=== PATIENT | female | born 1970 | race Hispanic/Latino ===

== ENCOUNTER 2018-05-12 11:02 | Day surgery (SDC) | payer MEDICARE, OTHER ==
[2018-05-12] MEDS ORDERED: MORPHINE IV NR (12:21)
--- NOTE | 2018-05-12 12:23 | Anesthesia Consultation ---
Anesthesia Consult and Med Hx Date of service: 05/12/18 - Airway Anesthetic Teeth Evaluation: Good ROM Head & Neck: Adequate Mental/Hyoid Distance: Adequate Mallampati Class: Class II Intubation Access Assessment: Probably Good - Pulmonary Exam CTA: Yes (no wheezing) - Cardiac Exam Cardiac Exam: RRR - Pre-Operative Health Status ASA Pre-Surgery Classification: ASA3 Proposed Anesthetic Plan: General - Pulmonary Hx Smoking: Yes (1 PPD FOR OVER 30Y) Hx Asthma: Yes COPD: Yes (last used albuterol today.) Home Oxygen Therapy: No - Cardiovascular System Hx Hypertension: Yes (20 YEARS) Hx Heart Attack/AMI: No Hx Valvular Heart Disease: Yes (MVP; rare palpitations) - Central Nervous System CVA: No Hx Back Pain: Yes Hx Psychiatric Problems: Yes (bipolar d/o, anxiety) - Gastrointestinal Hx Gastroesophageal Reflux Disease: Yes (asymptomatic today) - Endocrine Hx Renal Disease: No Hx Liver Disease: No Hx Insulin Dependent Diabetes: No Hx Non-Insulin Dependent Diabetes: No Hx Thyroid Disease: No - Other Systems Hx Alcohol Use: No Hx Substance Use: No Hx Cancer: No Hx Obesity: No - Additional Comments Anesthesia Medical History Comments: PMH Crohn's disease on stelara and entocort , COPD, smoking, bipolar anxiety. Takes zofran and phenergan prn for nausea. Takes oxycodone 10mg q4h prn for pain.
--- NOTE | 2018-05-12 12:33 | Operative Report ---
Operative Report Operative Report: Duplicate, please see other operative note
--- NOTE | 2018-05-12 12:37 | Anesthesia Day of Surgery ---
Anesthesia Day of Surgery - Day of Surgery Patient Examined: Yes Patient H&P Reviewed: Yes Patient is NPO: Yes
[2018-05-12] MEDS ORDERED: LACTATED RINGERS 1,000 ML IV SCH ×2 (13:00)
[2018-05-12] MEDS ORDERED: VERSED IV NR ×2 (13:00→15:00)
[2018-05-12] MEDS ORDERED: DECADRON IV NR (13:00)
[2018-05-12] MEDS ORDERED: DECADRON ONE (14:40)
[2018-05-12] MEDS ORDERED: DIPRIVAN 10 MG/ML IV ONE (14:40)
[2018-05-12] MEDS ORDERED: XYLOCAINE MPF 2% ONE (14:40)
[2018-05-12] MEDS ORDERED: ZOFRAN ONE (14:41)
[2018-05-12] MEDS ORDERED: DILAUDID ONE (14:41)
--- NOTE | 2018-05-12 14:44 | Short Stay Summary ---
Short Stay Documentation Date of service: 05/12/18 - History H&P: obtained from office - Allergies and Medications Current Medications: Allergies mesalamine [From Pentasa] Allergy (Verified 05/07/18 12:34) BLACKOUT hydromorphone [From Dilaudid] Adverse Reaction (Verified 05/12/18 13:20) hallucinations, agitation sulfa topical cream Allergy (Uncoded 05/12/18 14:35) Rash Home Medications Medication Instructions Recorded Confirmed Last Taken Type ALBUTEROL Inhaler [ProAir HFA 2 inh INHALATION Q4H PRN 05/07/18 05/12/18 10:00 History Inhaler] 2 puffs ALPRAZolam [Xanax TAB] 1 mg PO PRN PRN 05/07/18 05/12/18 05/09/18 History Aspirin [Aspirin BABY CHEW TAB] 81 mg PO QDAY 05/07/18 05/12/18 05/10/18 History Benazepril (Nf) 10 mg PO DAILY 05/07/18 05/12/18 05/11/18 History Budesonide [Budesonide EC] 9 mg PO DAILY 05/07/18 05/12/18 05/11/18 History Cyclobenzaprine [Flexeril] 10 mg PO TID PRN 05/07/18 05/12/18 05/11/18 History Lurasidone HCl [Latuda] 120 mg PO DAILY 05/07/18 05/12/18 05/11/18 History Morphine Sulfate [Morphine Sulfate 15 mg PO PRN PRN 05/07/18 05/12/18 05/09/18 History ER] Multivitamin [Multiple Vitamins] 1 each PO DAILY 05/07/18 05/12/18 05/11/18 History OXcarbazepine [Oxtellar XR] 150 mg PO QDAY 05/07/18 05/12/18 05/11/18 History Ondansetron [Zofran ODT TAB] 8 mg PO PRN PRN 05/07/18 05/12/18 05/05/18 History Oxycodone HCl 10 mg PO PRN PRN 05/07/18 05/12/18 05/12/18 07:00 History Pantoprazole Sodium 40 mg PO QAM 05/07/18 05/12/18 05/11/18 History Promethazine [Phenergan TAB] 25 mg PO Q6HR PRN 05/07/18 05/12/18 05/01/18 History Ustekinumab [Stelara] 90 mg IM QMONTH 05/07/18 05/12/18 04/29/18 History Dicyclomine [Bentyl] 10 mg PO QDAY 05/12/18 05/12/18 05/11/18 History Loperamide [Imodium] 2 mg PO QDAY PRN 05/12/18 05/12/18 05/10/18 History Potassium Chloride [Klor-Con M20] 20 meq PO QDAY 05/12/18 05/12/18 03/10/18 History Simethicone [Gas-X] 62.5 mg PO QDAY PRN 05/12/18 05/12/18 05/09/18 History Spironolactone 50 mg PO QDAY 05/12/18 05/12/18 05/11/18 History amLODIPine [Norvasc] 5 mg PO DAILY 05/12/18 05/12/18 05/12/18 09:00 History Active Medications Dexamethasone (Decadron) 4 mg IV PREOP NR Stop: 05/12/18 23:51 Last Admin: 05/12/18 13:07 Dose: 4 mg Fentanyl (Sublimaze) 50 mcg IV Q10M PRN PRN Reason: Pain , Severe (7-10) Stop: 05/12/18 18:00 Lactated Ringer's (Lactated Ringers) 1,000 mls @ 100 mls/hr IV DIRECT BETH Last Admin: 05/12/18 13:06 Dose: 100 mls/hr Lactated Ringer's (Lactated Ringers) 1,000 mls @ 100 mls/hr IV DIRECT BETH Stop: 05/12/18 18:00 Midazolam HCl (Versed) 2 mg IV PREOP NR Stop: 05/12/18 23:59 Last Admin: 05/12/18 14:05 Dose: 2 mg Midazolam HCl (Versed) 2 mg IV PREOP NR Stop: 05/12/18 23:59 Morphine Sulfate (Morphine) 2 mg IV ONCE NR Stop: 05/12/18 23:59 Last Admin: 05/12/18 12:58 Dose: 2 mg - Brief post op/procedure progress note Date of procedure: 05/12/18 Pre-op diagnosis: 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 Post-op diagnosis: same Procedure: Left breast fibroadenoma excisional biopsy of the upper outer quadrant Anesthesia: GETA Findings: Left breast fibroadenoma at the 2:00 position Surgeon: MILADIS BIANCHI Estimated blood loss: minimal Pathology: list (left breast fibroadenoma) Specimen disposition: to lab Condition: stable - Disposition Condition at discharge: Good Disposition: DC-01 TO HOME OR SELFCARE Short Stay Discharge Plan Activity: other (no heavy lifting) Diet: regular Wound: other (keep incision clean and dry; may shower in 30 hours; no baths, pools or lakes; wear breast binder) Follow up with: ETHEL WALSH [Other] - 7 Days MILADIS BIANCHI MD [Staff Physician] - 7 Days
--- NOTE | 2018-05-12 14:49 | Operative Report ---
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 Findings: Known left breast fibroadenoma at the 2 o'clock position Complications: None Drains: None Estimated blood loss: Minimal Disposition: PACU in good condition Indication for operative procedure: This is a 48-year-old lady with known left breast fibroadenoma at the 2:00 position. Patient wanted to proceed with left fibroadenoma excisional biopsy given sympotomatic pain. Patient wished to proceed with the above procedure. The patient was procedure in detail: The patient was taken to the operating room and was laid supine. General anesthesia was administered. The left breast fibroadenoma was palpable at the 2 o'clock position 7 cm from the nipple. The left breast was prepped and draped in the normal sterile operative fashion. Timeout was performed. Ultrasound was used to brett the area of incision. An upper outer quadrant breast incision was made with a 15 blade knife 2:00 position with dissection taken down to the subcutaneous tissues. The fibroadenoma was encountered and was dissected free with the aid of the Bovie cautery. The specimen was sent to pathology. Hemostasis was then obtained using the Bovie cautery. The breast cavity was irrigated and suctioned. The breast cavity was anesthesized with 1% lidocaine with quarter percent marcaine. The deep breast tissues were approximated and closed using interrupted 3-0 Vicryl and skin brought together and closed using a running 4-0 Monocryl followed by skin affix. She tolerated surgery very well and was awakened from anesthesia without any complication and transported to PACU in good condition.
[2018-05-12] MEDS ORDERED: SUBLIMAZE ONE ×2 (15:01→15:17)
[2018-05-12] MEDS ORDERED: MARCAINE 0.25% INFILTRATI ONE (15:19)
[2018-05-12] MEDS ORDERED: XYLOCAINE 1% 20 mL INFILTRATI ONE (15:19)
[2018-05-12] MEDS ORDERED: NACL 0.9% IR ONE (15:19)
[2018-05-12] MEDS: SUBLIMAZE IV PRN ×2 (15:58→16:13)
--- NOTE | 2018-05-12 16:52 | Post Anesthesia Evaluation ---
- Post Anesthesia Evaluation Patient Participated: Yes Airway Patent: Yes Stable Respiratory Function: Yes Nausea/Vomiting: No Temp > 96.8F: Yes Pain Manageable: Yes Adequeate Hydration: Yes Anesthesia Complications: No
[2018-05-12 17:33] VITALS: BP 162/99
== END 2018-05-12 17:10 | disposition home or self-care (01) ==
LOC: OR 11:02
PROVIDERS: ATTEND Surgery
DX: D24.2 Benign neoplasm of left breast (principal); R92.0 Mammographic microcalcification found on diagnostic imaging of breast; G43.909 Migraine, unspecified, not intractable, without status migrainosus; M79.7 Fibromyalgia; F31.9 Bipolar disorder, unspecified; I10 Essential (primary) hypertension; J44.9 Chronic obstructive pulmonary disease, unspecified; K21.9 Gastro-esophageal reflux disease without esophagitis; M19.90 Unspecified osteoarthritis, unspecified site; K50.90 Crohn's disease, unspecified, without complications; F17.210 Nicotine dependence, cigarettes, uncomplicated; Z79.899 Other long term (current) drug therapy; Z88.6 Allergy status to analgesic agent; Z88.5 Allergy status to narcotic agent; Z88.2 Allergy status to sulfonamides; Z98.51 Tubal ligation status; Z90.710 Acquired absence of both cervix and uterus; Z90.49 Acquired absence of other specified parts of digestive tract; Z98.891 History of uterine scar from previous surgery; Z98.890 Other specified postprocedural states
CPT/HCPCS: 19120; 88307; J1100; J1170; J2250; J2270; J2405; J2704; J3010; J7120